=== PATIENT | male | born 1995 | race Caucasian/White ===

== ENCOUNTER 2016-12-29 15:45 | Emergency (ER) | payer OTHER ==
[~2016-12-29] VITALS: Ht 177.8 cm; Wt 65.2 kg
[~2016-12-29 15:45] MED LIST: CLCUDL150 PO; HYDR1SOL30 PO
[2016-12-29 15:51] VITALS: TEMP 36.8; Ht 177.8 cm; Wt 65.2 kg
[2016-12-29] MEDS ORDERED: ONDANSETRON INJ 2 MG/ML 2 ML VIAL IV STA (16:14)
[2016-12-29] MEDS ORDERED: ACETAMINOPHEN IV 650 MG in EMPTY BAG 0 ML IV STA (16:14)
[2016-12-29] MEDS ORDERED: DiphenhydrAMINE HCL 50 MG/ML VIAL IV STA (16:14)
[2016-12-29] MEDS ORDERED: SODIUM CHLORIDE 0.9% 500ML 500 ML IV STA (16:14)
--- NOTE | 2016-12-29 16:33 | EMERGENCY ROOM VISIT NOTE ---
History Report prepared by [place]: Ulises Weiss Under the Supervision of: Dr. Shaneka Sheldon D.O. First contact with patient: 15:56 Chief Complaint: HEADACHE Stated Complaint: MIGRAINE,PAIN BEHIND NECK&COUGHING History of Present Illness The patient is a 21 year old male who presents to the Emergency Room with complaints of a worsening right-sided headache that began yesterday. At that time, the patient was experiencing a cough, rhinorrhea, and posterior neck pain. He then got this mild headache with nausea as well. His cough has been intermittently productive with yellow sputum. Today, he woke up and his symptoms were worse. He was experiencing lightheadedness with standing and vision blurring. He has never had a migraine before, but his mother has a history of them. He notes that his vision has been improving throughout the day. He denies any fevers, congestion, ear pain, sore throat,, vomiting, abdominal pain, rashes, leg swelling, diarrhea, melena, hematochezia, or abnormal urinary symptoms. He denies any numbness or weakness. He denies any photophobia or sensitivity to sounds. His headache feels better with lying down. He has been keeping up with fluids, but has not been eating today. He denies any recent trauma or injury. He has a past medical history of concussions. He notes that in the past, his CRP levels were above 300. He was treated in the past, but his physicians were not able to find a source. Source of History: patient Onset: yesterday Position: head (right-sided) Symptom Intensity: moderate Quality: ache Timing: worsening Modifying Factors (Worsening): other (Standing) Modifying Factors (Relieving): rest Associated Symptoms: + cough, + nausea, No fevers, No sorethroat, No vomiting, No abdominal pain, No melena, No hematochezia, No diarrhea, No urinary symptoms, No weakness, No numbness, No rash Review of Systems See HPI for pertinent positives & negatives. A total of 10 systems reviewed and were otherwise negative. Past Medical & Surgical Medical Problems: (1) Concussion (2) No Known Active Medical Problems Family History FHx: migraine headaches Social History Smoking Status: Current Every Day Smoker Smokeless Tobacco Use: No Drug Use: none Housing Status: lives with roommate Occupation Status: [employer] student Current/Historical Medications No Active Prescriptions or Reported Meds Allergies Coded Allergies: Penicillins (Verified Allergy, Unknown, unsure, 12/29/16) Physical Exam Vital Signs Date Time Temp Pulse Resp B/P (MAP) Pulse Ox O2 Delivery O2 Flow Rate FiO2 12/29/16 18:43 51 18 105/56 100 Room Air 12/29/16 15:51 36.8 82 18 165/82 98 Room Air Physical Exam GENERAL: alert, well appearing, well nourished, no distress, non-toxic EYE EXAM: normal conjunctiva OROPHARYNX: no exudate, no erythema, lips, buccal mucosa, and tongue normal and mucous membranes are moist. No sinus tenderness to percussion. NECK: supple, no nuchal rigidity, no adenopathy, non-tender LUNGS: Clear to auscultation. Normal chest wall mechanics HEART: no murmurs, S1 normal and S2 normal ABDOMEN: abdomen soft, non-tender, normo-active bowel sounds, no masses, no rebound or guarding. BACK: Back is symmetrical on inspection and there is no deformity, no midline tenderness, no CVA tenderness. SKIN: no rashes and no bruising UPPER EXTREMITIES: upper extremities are grossly normal. LOWER EXTREMITIES: No pitting edema. NEURO EXAM: Normal sensorium, cranial nerves II-XII grossly intact, normal speech, no gross weakness of arms, no gross weakness of legs. Medical Decision & Procedures ER Provider Diagnostic Interpretation: Radiology results have been interpreted by the radiologist and reviewed by me. ANGIOGRAPHY HEAD COMBO CLINICAL HISTORY: 21 years-old Male presents with acute atypical headache COMPARISON STUDY: CT head 06/27/2015: TECHNIQUE: Unenhanced axial CT scan of the brain is performed. Subsequently, following the IV administration of 92 cc of Optiray 320, CT angiogram of the brain was performed from the skull base to the vertex. Images are reviewed in the axial, sagittal, and coronal planes. 3-D MIPS images are created and assessed. IV contrast was administered without complication. A dose lowering technique was utilized adhering to the principles of ALARA. CT DOSE: 646.10 mGy.cm FINDINGS: CT BRAIN: There is no acute intracranial hemorrhage, midline shift, hydrocephalus, intracranial mass, territorial ischemia or abnormal extra-axial collections. No abnormal intra-axial or extra-axial enhancement. Calcified choroid plexus of the left lateral ventricular atria again noted on image 16 of series 2. Mastoid air cells and middle ear cavities are clear. No calvarial fracture. Paranasal sinuses are clear. CT ANGIOGRAM OF THE BRAIN: The imaged bilateral internal carotid arteries are patent. The bilateral anterior and middle cerebral arteries are also patent. The vertebrobasilar system and posterior cerebral arteries are widely patent. There is no aneurysm, high-grade stenosis, or proximal branch occlusion identified. Dural sinuses appear patent. IMPRESSION: 1. No acute intracranial abnormality. 2. Unremarkable CTA of the brain without high-grade stenosis, proximal branch occlusion, dissection or aneurysm. The above report was generated using voice recognition software. It may contain grammatical, syntax or spelling errors. Electronically signed by: Wilfredo Lazo M.D. 12/29/2016 6:14 PM Dictated Date/Time: 12/29/2016 6:01 PM Laboratory Results 12/29/16 16:29 Red Blood Count 5.01, Mean Corpuscular Volume 89.4, Mean Corpuscular Hemoglobin 30.9, Mean Corpuscular Hemoglobin Concent 34.6, Mean Platelet Volume 10.2, Neutrophils (%) (Auto) 55.5, Lymphocytes (%) (Auto) 32.1, Monocytes (%) (Auto) 10.4, Eosinophils (%) (Auto) 1.3, Basophils (%) (Auto) 0.7, Neutrophils # (Auto ) 3.41, Lymphocytes # (Auto) 1.97, Monocytes # (Auto) 0.64, Eosinophils # (Auto ) 0.08, Basophils # (Auto) 0.04 12/29/16 16:29 Test 12/29/16 16:29 White Blood Count 6.14 K/uL (4.8-10.8) Red Blood Count 5.01 M/uL (4.7-6.1) Hemoglobin 15.5 g/dL (14.0-18.0) Hematocrit 44.8 % (42-52) Mean Corpuscular Volume 89.4 fL (80-100) Mean Corpuscular Hemoglobin 30.9 pg (25-34) Mean Corpuscular Hemoglobin Concent 34.6 g/dl (32-36) Platelet Count 232 K/uL (130-400) Mean Platelet Volume 10.2 fL (7.4-10.4) Neutrophils (%) (Auto) 55.5 % Lymphocytes (%) (Auto) 32.1 % Monocytes (%) (Auto) 10.4 % Eosinophils (%) (Auto) 1.3 % Basophils (%) (Auto) 0.7 % Neutrophils # (Auto) 3.41 K/uL (1.4-6.5) Lymphocytes # (Auto) 1.97 K/uL (1.2-3.4) Monocytes # (Auto) 0.64 K/uL (0.11-0.59) Eosinophils # (Auto) 0.08 K/uL (0-0.5) Basophils # (Auto) 0.04 K/uL (0-0.2) RDW Standard Deviation 43.0 fL (36.4-46.3) RDW Coefficient of Variation 13.2 % (11.5-14.5) Immature Granulocyte % (Auto) 0.0 % Immature Granulocyte # (Auto) 0.00 K/uL (0.00-0.02) Anion Gap 5.0 mmol/L (3-11) Est Creatinine Clear Calc Drug Dose 98.8 ml/min Estimated GFR () 111.4 Estimated GFR (Non- 96.1 BUN/Creatinine Ratio 14.3 (10-20) Calcium Level 9.2 mg/dl (8.5-10.1) Laboratory results per my review. Medications Administered Medications (Trade) Dose Ordered Sig/Zeeshan Route Start Time Stop Time Status Last Admin Dose Admin Ondansetron HCl (Zofran Inj) 4 mg NOW STAT IV 12/29/16 16:14 12/29/16 16:17 DC 12/29/16 16:40 4 MG Diphenhydramine HCl (Benadryl Inj) 25 mg NOW STAT IV 12/29/16 16:14 12/29/16 16:17 DC 12/29/16 16:41 25 MG Acetaminophen 650 mg/Empty Bag 65 ml @ 260 mls/hr NOW STAT IV 12/29/16 16:14 12/29/16 16:28 DC 12/29/16 16:40 260 MLS/HR Sodium Chloride 500 ml @ 500 mls/hr Q1H STAT IV 12/29/16 16:14 12/29/16 17:13 DC 12/29/16 16:40 500 MLS/HR Ketorolac Tromethamine (Toradol Inj) 30 mg NOW STAT IV 12/29/16 18:25 12/29/16 18:26 DC 12/29/16 18:43 30 MG ED Course 1556: The patient was evaluated in room B6. A complete history and physical exam was performed. 1614: Ordered Sodium Chloride 500 ml @ 500 mls/hr IV, Acetaminophen 650 mg/ Empty Bag 65 ml @ 260 mls/hr IV, Benadryl Inj 25 mg IV, Zofran Inj 4 mg IV 1825: Ordered Toradol Inj 30 mg IV 1850: Upon reevaluation, the patient is feeling better. I discussed the findings and the treatment plan with the patient. He verbalizes agreement and understanding. He was discharged home. Medical Decision Differential Diagnosis includes but is not limited to headache, tension headache , cluster headache, migraine, subarachnoid hemorrhage, meningitis, mass, central venous thrombus, concussion, trauma and epidural/subdural hemorrhage. Pt well appearing here and imaging reassuring. Doubt related to cva, dissection , dvs thrombus. No fevers or leukocytosis, doubt meningitis/encephalitis. Given description of waxing and waning symptoms, no thunderclap quality, did not feel needed LP for SAH. Pt reported improvement here, discussed sx to watch /return for, he verbalized understanding and was agreeable with plan Medication Reconcilliation Current Medication List: was personally reviewed by me Blood Pressure Screening Patient's blood pressure: Elevated blood pressure Blood pressure disposition: Elevated BP felt to be situational Impression Primary Impression: Headache Scribe Attestation The scribe's documentation has been prepared under my direction and personally reviewed by me in its entirety. I confirm that the note above accurately reflects all work, treatment, procedures, and medical decision making performed by me. Departure Information Dispostion Home / Self-Care Prescriptions No Active Prescriptions or Reported Meds Referrals [facility] Forms HOME CARE DOCUMENTATION FORM, IMPORTANT VISIT INFORMATION Patient Instructions Headache Pain, My [facility] [place] Additional Instructions Please drink plenty of clear liquids to stay well hydrated. You may eat as tolerated. You may use tylenol and/or ibuprofen as needed for pain. If you have any worsening pain, develop dizziness, vision changes, vomiting, chest pain , or you have any other new or concerning symptoms, please return to the emergency room. Problem Qualifiers Primary Impression: Headache Headache type: unspecified Headache chronicity pattern: acute headache Intractability: not intractable Qualified Codes: R51 - Headache
[2016-12-29 16:42] LABS: BASO % 0.7 %; BASO ABS # 0.04 K/uL (0-0.2); COMPLETE YES; EOS % 1.3 %; HEMATOCRIT 44.8 % (42-52); LYMPH % 32.1 %; LYMPH ABS # 1.97 K/uL (1.2-3.4); MEAN CELL VOLUME 89.4 fL (80-100); MEAN CORPUSCULAR HEMOGLOBIN 30.9 pg (25-34); MEAN CORPUSCULAR HGB CONC 34.6 g/dl (32-36); MEAN PLATELET VOLUME 10.2 fL (7.4-10.4); MONO % 10.4 %; NEUT % 55.5 %; PLATELET COUNT 232 K/uL (130-400); RED BLOOD COUNT 5.01 M/uL (4.7-6.1); WHITE BLOOD COUNT 6.14 K/uL (4.8-10.8)
[2016-12-29 17:06] LABS: BUN/CREATININE RATIO 14.3 (10-20); CALCIUM 9.2 mg/dl (8.5-10.1); CREATININE 1.1 mg/dl (0.60-1.40); POTASSIUM 3.9 mmol/L (3.5-5.1)
[2016-12-29] MEDS ORDERED: OPTIRAY 320 IV PRN (18:00)
--- NOTE | 2016-12-29 18:16 | DIAGNOSTIC IMAGING REPORT ---
ANGIOGRAPHY HEAD COMBO CLINICAL HISTORY: 21 years-old Male presents with acute atypical headache COMPARISON STUDY: CT head 06/27/2015: TECHNIQUE: Unenhanced axial CT scan of the brain is performed. Subsequently, following the IV administration of 92 cc of Optiray 320, CT angiogram of the brain was performed from the skull base to the vertex. Images are reviewed in the axial, sagittal, and coronal planes. 3-D MIPS images are created and assessed. IV contrast was administered without complication. A dose lowering technique was utilized adhering to the principles of ALARA. CT DOSE: 646.10 mGy.cm FINDINGS: CT BRAIN: There is no acute intracranial hemorrhage, midline shift, hydrocephalus, intracranial mass, territorial ischemia or abnormal extra-axial collections. No abnormal intra-axial or extra-axial enhancement. Calcified choroid plexus of the left lateral ventricular atria again noted on image 16 of series 2. Mastoid air cells and middle ear cavities are clear. No calvarial fracture. Paranasal sinuses are clear. CT ANGIOGRAM OF THE BRAIN: The imaged bilateral internal carotid arteries are patent. The bilateral anterior and middle cerebral arteries are also patent. The vertebrobasilar system and posterior cerebral arteries are widely patent. There is no aneurysm, high-grade stenosis, or proximal branch occlusion identified. Dural sinuses appear patent. IMPRESSION: 1. No acute intracranial abnormality. 2. Unremarkable CTA of the brain without high-grade stenosis, proximal branch occlusion, dissection or aneurysm. The above report was generated using voice recognition software. It may contain grammatical, syntax or spelling errors. Electronically signed by: Wilfredo Lazo M.D. 12/29/2016 6:14 PM Dictated Date/Time: 12/29/2016 6:01 PM
[2016-12-29] MEDS ORDERED: KETOROLAC TROMETHAMINE 30 MG/ML VIAL IV STA (18:25)
[2016-12-29 18:43] VITALS: BP 105/56; PULSE 51; O2SAT 100
== END 2016-12-29 18:57 | disposition home or self-care (01) ==
LOC: C.EDB 15:47
DX: R51 Headache (principal); F17.200 Nicotine dependence, unspecified, uncomplicated; Z87.828 Personal history of other (healed) physical injury and trauma; Z88.0 Allergy status to penicillin

== ENCOUNTER 2017-05-15 15:46 | Emergency (ER) | payer OTHER ==
[~2017-05-15] VITALS: Ht 177.8 cm; Wt 67.0 kg
[2017-05-15 15:58] VITALS: Ht 177.8 cm; Wt 67.0 kg
[2017-05-15] MEDS ORDERED: KETOROLAC TROMETHAMINE 30 MG/ML VIAL IV STA (16:08)
[2017-05-15] MEDS ORDERED: ACETAMINOPHEN 500 MG TAB PO STA (16:08)
[2017-05-15] MEDS ORDERED: SODIUM CHLORIDE 0.9% 1000ML 1,000 ML IV ONE (16:15)
[2017-05-15 16:35] VITALS: O2SAT 99
[2017-05-15 16:50] LABS: BASO % 0.5 %; BASO ABS # 0.04 K/uL (0-0.2); EOS % 0.2 %; EOS ABS # 0.02 K/uL (0-0.5); HEMATOCRIT 41.5 % (42-52); HEMOGLOBIN 14.7 g/dL (14.0-18.0); IG# 0.02 K/uL (0.00-0.02); LYMPH % 17.2 %; LYMPH ABS # 1.39 K/uL (1.2-3.4); MEAN CELL VOLUME 85.9 fL (80-100); MEAN CORPUSCULAR HEMOGLOBIN 30.4 pg (25-34); MEAN CORPUSCULAR HGB CONC 35.4 g/dl (32-36); MEAN PLATELET VOLUME 10.2 fL (7.4-10.4); MONO % 12.6 %; MONO ABS # 1.02 K/uL (0.11-0.59); NEUT % 69.3 %; PLATELET COUNT 152 K/uL (130-400); RED CELL DISTRIBUTION WIDTH CV 13.1 % (11.5-14.5); RED CELL DISTRIBUTION WIDTH SD 41.4 fL (36.4-46.3); WHITE BLOOD COUNT 8.09 K/uL (4.8-10.8)
[2017-05-15 17:07] LABS: INFLUENZA B ANTIGEN Neg for Influ B (NEG)
[2017-05-15 17:09] LABS: ALBUMIN 3.8 gm/dl (3.4-5.0); CALCIUM 8.6 mg/dl (8.5-10.1); CREATININE 1.18 mg/dl (0.60-1.40); POTASSIUM 3.5 mmol/L (3.5-5.1)
--- NOTE | 2017-05-15 17:10 | DIAGNOSTIC IMAGING REPORT ---
CHEST 2 VIEWS ROUTINE CLINICAL HISTORY: 22 years-old Male presenting with CP. Fever. Cough. . TECHNIQUE: PA and lateral views of the chest were obtained. COMPARISON: None. FINDINGS: Cardiomediastinal silhouette normal. Lungs and pleural spaces clear. Osseous structures normal. Upper abdomen normal. IMPRESSION: 1. No acute cardiopulmonary disease. Electronically signed by: Richardson Aaron M.D. 05/15/2017 5:09 PM Dictated Date/Time: 05/15/2017 5:08 PM
[2017-05-15 17:20] LABS: TOTAL PROTEIN 7.8 gm/dl (6.4-8.2)
[2017-05-15 17:55] VITALS: BP 105/71; PULSE 63; TEMP 37; O2SAT 100
--- NOTE | 2017-05-15 19:04 | EMERGENCY ROOM VISIT NOTE ---
History First contact with patient: 16:00 Chief Complaint: FEVER Stated Complaint: COLD SWEAT,FEVER, CHEST PAIN, MIGRAINE History of Present Illness The patient is a 22 year old male who presents to the Emergency Room with complaints of fevers, chills, coughing, and chest discomfort for the past 2 days. Patient does not have a fever at home, but states that he has had a high fever and he is not taking anything [id number] for his symptoms. 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 He rates his overall discomfort in 10. He presents to the ER today because he is having chest discomfort which is new in the past few hours. He does not have abdominal pain or extremity pain. No recent travel history. He considers himself otherwise usually healthy. Review of Systems More than 10 systems were reviewed and otherwise negative with the exception of history of present illness. Past Medical/Surgical History Medical Problems: (1) Concussion (2) No Known Active Medical Problems Family History FHx: migraine headaches Social History Smoking Status: Current Every Day Smoker Drug Use: none Housing Status: lives with roommate Occupation Status: [employer] student Current/Historical Medications No Active Prescriptions or Reported Meds Physical Exam Vital Signs Date Time Temp Pulse Resp B/P (MAP) Pulse Ox O2 Delivery O2 Flow Rate FiO2 05/15/17 17:55 37.0 63 28 105/71 100 Room Air 05/15/17 16:45 73 05/15/17 16:35 99 Room Air 05/15/17 15:58 38.0 82 16 114/68 99 Physical Exam VITALS: Vitals are noted on the nurse's note and reviewed by myself. Vital signs with low-grade fever GENERAL: Well-developed, well-nourished, male, who is in no acute distress and resting comfortably. Patient is cooperative with the examination. HEAD: Normocephalic atraumatic. EARS: External ear normal. External auditory canals clear, tympanic membranes pearly de leon without erythema or effusion bilaterally. EYES: Pupils equal round and reactive to light and accommodation. Conjunctivae without injection, sclerae without icterus. Extraocular movements intact. NOSE: Patent, turbinates without inflammation or discharge. MOUTH: Mucous membranes moist. Tonsils are not enlarged. Pharynx without erythema, blood, or exudate. Uvula midline. Airway patent. NECK: Supple without nuchal rigidity. No lymphadenopathy. No thyromegaly. Cervical spine is nontender. HEART: Regular rate and rhythm without murmurs gallops or rubs. LUNGS: Clear to auscultation bilaterally without wheezes, rales or rhonchi. No retractions or accessory muscle use. ABDOMEN: Positive normal bowel sounds x 4. Soft, nontender, without masses or organomegaly. No guarding or rebound tenderness. MUSCULOSKELETAL: No muscle atrophy, erythema, or edema noted. Full range of motion in all extremities. No tenderness to palpation. Medical Decision & Procedures ER Provider Diagnostic Interpretation: CHEST 2 VIEWS ROUTINE CLINICAL HISTORY: 22 years-old Male presenting with CP. Fever. Cough. . TECHNIQUE: PA and lateral views of the chest were obtained. COMPARISON: None. FINDINGS: Cardiomediastinal silhouette normal. Lungs and pleural spaces clear. Osseous structures normal. Upper abdomen normal. IMPRESSION: 1. No acute cardiopulmonary disease. Laboratory Results 05/15/17 16:33 Red Blood Count 4.83, Mean Corpuscular Volume 85.9, Mean Corpuscular Hemoglobin 30.4, Mean Corpuscular Hemoglobin Concent 35.4, Mean Platelet Volume 10.2, Neutrophils (%) (Auto) 69.3, Lymphocytes (%) (Auto) 17.2, Monocytes (%) (Auto) 12.6, Eosinophils (%) (Auto) 0.2, Basophils (%) (Auto) 0.5, Neutrophils # (Auto ) 5.60, Lymphocytes # (Auto) 1.39, Monocytes # (Auto) 1.02, Eosinophils # (Auto ) 0.02, Basophils # (Auto) 0.04 05/15/17 16:33 Test 05/15/17 16:33 05/15/17 16:43 White Blood Count 8.09 K/uL (4.8-10.8) Red Blood Count 4.83 M/uL (4.7-6.1) Hemoglobin 14.7 g/dL (14.0-18.0) Hematocrit 41.5 % (42-52) Mean Corpuscular Volume 85.9 fL (80-100) Mean Corpuscular Hemoglobin 30.4 pg (25-34) Mean Corpuscular Hemoglobin Concent 35.4 g/dl (32-36) Platelet Count 152 K/uL (130-400) Mean Platelet Volume 10.2 fL (7.4-10.4) Neutrophils (%) (Auto) 69.3 % Lymphocytes (%) (Auto) 17.2 % Monocytes (%) (Auto) 12.6 % Eosinophils (%) (Auto) 0.2 % Basophils (%) (Auto) 0.5 % Neutrophils # (Auto) 5.60 K/uL (1.4-6.5) Lymphocytes # (Auto) 1.39 K/uL (1.2-3.4) Monocytes # (Auto) 1.02 K/uL (0.11-0.59) Eosinophils # (Auto) 0.02 K/uL (0-0.5) Basophils # (Auto) 0.04 K/uL (0-0.2) RDW Standard Deviation 41.4 fL (36.4-46.3) RDW Coefficient of Variation 13.1 % (11.5-14.5) Immature Granulocyte % (Auto) 0.2 % Immature Granulocyte # (Auto) 0.02 K/uL (0.00-0.02) Anion Gap 7.0 mmol/L (3-11) Est Creatinine Clear Calc Drug Dose 93.8 ml/min Estimated GFR () 101.6 Estimated GFR (Non- 87.7 BUN/Creatinine Ratio 10.0 (10-20) Calcium Level 8.6 mg/dl (8.5-10.1) Magnesium Level 2.2 mg/dl (1.8-2.4) Total Bilirubin 0.5 mg/dl (0.2-1) Aspartate Amino Transf (AST/SGOT) 29 U/L (15-37) Alanine Aminotransferase (ALT/SGPT) 31 U/L (12-78) Alkaline Phosphatase 68 U/L (45-117) Total Protein 7.8 gm/dl (6.4-8.2) Albumin 3.8 gm/dl (3.4-5.0) Globulin 4.0 gm/dl (2.5-4.0) Albumin/Globulin Ratio 1.0 (0.9-2) Lipase 100 U/L (73-393) Thyroid Stimulating Hormone (TSH) 1.520 uIu/ml (0.300-4.500) Monoscreen NEG (NEG) Influenza Type A Antigen Neg for Influ A (NEG) Influenza Type B Antigen Neg for Influ B (NEG) Medications Administered Medications (Trade) Dose Ordered Sig/Zeeshan Route Start Time Stop Time Status Last Admin Dose Admin Acetaminophen (Tylenol Tab) 1,000 mg NOW STAT PO 05/15/17 16:08 05/15/17 16:10 DC 05/15/17 16:41 1,000 MG Sodium Chloride 1,000 ml @ 999 mls/hr Q1H1M ONCE IV 05/15/17 16:15 05/15/17 17:15 DC 05/15/17 16:37 999 MLS/HR Ketorolac Tromethamine (Toradol Inj) 30 mg NOW STAT IV 05/15/17 16:08 05/15/17 16:10 DC 05/15/17 16:41 30 MG ED Course Physical exam and history were performed. Nursing notes, EMR, and Medication List were personally reviewed. Patient appears to have flulike symptoms for the past few days. He does not appear toxic on examination. EKG was performed and reviewed by myself as normal sinus rhythm without acute ST elevation. IV access was established and labs were obtained. The patient was hydrated and medicated as above. X-ray was performed. He was placed on a patient monitor. The patient's blood work is as above and was reviewed. He does not have a significantly elevated white blood cell count, gross anemia, bandemia, or significant electrolyte imbalance. D-dimer and troponin are negative. Chest x- ray was reviewed by myself and radiology showing no acute process. Influenza swabbing was negative. On reevaluation the patient felt very comfortable with improvement of his symptoms. Overall he likely has a viral process contributing to his symptoms. He will be treated conservatively with [id number] medication. He is to follow with [facility] this week for further care management. He was otherwise invited back to the ER with any new, worsening, or concerning symptoms. The chart was completed utilizing [employer] Speech Voice Recognition Software. Grammatical errors, random word insertions, pronoun errors, and incomplete sentences are an occasional consequence of this system due to software limitations, ambient noise, and hardware issues. Any formal questions or concerns about the content, text, or information contained within the body of this dictation should be directly addressed to the provider for clarification. . Medical Decision Differential diagnosis: Etiologies such as viral syndrome, otitis, pharyngitis, pneumonia, influenza, meningitis, urinary tract infection, sepsis, bacteremia, as well as others were entertained. Impression Primary Impression: Influenza-like symptoms Additional Impression: Fever Departure Information Dispostion Home / Self-Care Prescriptions No Active Prescriptions or Reported Meds Referrals [facility] (PCP) Forms HOME CARE DOCUMENTATION FORM, IMPORTANT VISIT INFORMATION Patient Instructions My [facility] Additional Instructions You were seen and evaluated today on an emergency basis only. This is not a substitute for, or an effort to provide, complete comprehensive medical care. It is not possible to recognize and treat all injuries or illnesses in a single emergency department visit. For this reason it is recommended that you followup with [facility] this week for ongoing care and evaluation. For baseline pain relief you may alternate ibuprofen and acetaminophen every 4 hours for pain control. Take 600 mg ibuprofen (Advil) and then 4 hours later take 1000 mg acetaminophen (Tylenol). Do not take more than 3000 mg acetaminophen in a single day. You are welcome to return to the emergency department anytime with new, worsening, or concerning symptoms. Problem Qualifiers
== END 2017-05-15 18:25 | disposition home or self-care (01) ==
LOC: C.EDB 15:47
DX: R50.9 Fever, unspecified (principal); R05 Cough; R07.89 Other chest pain; F17.200 Nicotine dependence, unspecified, uncomplicated; Z87.828 Personal history of other (healed) physical injury and trauma